=== PATIENT | female | born 1955 | race Caucasian/White ===

== ENCOUNTER → 2020-05-27 08:44 | Outpatient (BNVA) | payer OTHER, SELFPAY | PROVIDERS: Family Provider Nurse Practitioner Family; Visit Provider Nurse Practitioner Family | DX: Z20.828 Contact with and (suspected) exposure to other viral communicable diseases (principal) | CPT/HCPCS: 87635 ==

== ENCOUNTER 2021-09-28 08:47 | Outpatient (CLI) | payer MEDICARE, SELFPAY ==
[2021-09-28 08:57] VITALS: BMI 29.2
--- NOTE | 2021-09-28 09:15 | NMCV_ITS ---
NM davey perf SPECT r/s* [id number] Deandra Holloway Age: 66 Gender: F : 1955 Exam Date: 09/28/2021 09:15 Ordering Phys: Liya Fuller MD Technologist: JESSY Shannon Exam Location: [facility] Indications: CHEST PAIN STRESS TEST Please see separate stress test report in [facility] for full findings IMAGE PROTOCOL Rest/Stress 1 Lexiscan Day Radiopharmaceutical Dose (mCi) Administration Site Administered by Rest: Tc-99m 10.8 IV JESSY Espinal Sestamibi Stress:Tc-99m 32.7 IV JESSY Shannon Sestamiandrae Rest: 28-Sep-2021 60 Discovery 630 Stress: 28-Sep-2021 30 Discovery 630 0.4mg Lexiscan. Images obtained in supine and prone position. SPECT RESULTS Technical Quality: Excellent Raw Data Analysis: Normal Image Corrections: No attenuation or motion correction applied Summed Stress Score: 1 Summed Rest Score: 0 Summed Difference Score: 1 PERFUSION FINDINGS There is a small in size, reversible perfusion defect in the apical lateral wall. This is consistent with small sized area of ischemia in the left circumflex artery territory FUNCTIONAL RESULTS (calculated via Gated SPECT) Stress Image LV EF (%): 78 Stress EDV (mL):89 TID: 1.21 Stress ESV (mL):20 FUNCTIONAL FINDINGS: There is normal left ventricular systolic function. TID ratio is elevated IMPRESSIONS 1. Abnormal myocardial perfusion imaging with small sized area of ischemia noted in the left circumflex artery territory 2. LV systolic function is normal 3. Elevated TID ratio seen Endy Rea MD (Electronically Signed) Final Date: 03 Oct 2021 08:43 S
--- NOTE | 2021-09-28 09:15 | ECG_ITS ---
[facility] Test Date: 2021-09-28 Pat Name: Deandra Holloway Department: Room: Gender: Female Environmental Compliance Manager: Amee Zhangn : 1955 Requested By: Liya Pennington Order Number: [id number] Octaviano MD: Endy Rea M.D. Interpretive Statements NAME OF STUDY: LEXISCAN SESTAMIBI STRESS TEST INDICATION: [Chest Pain, ] Procedure: At the baseline, the blood pressure was 121/60 mmHg with a heart rate of 60 bpm. The electrocardiogram showed normal sinus rhythm, normal axis with normal ST and T's. The Lexiscan was infused over a period of 20 seconds. A total of 0.4 mg of Lexiscan was infused. The stress phase was continued for a total of 5 minutes. Heart rate was at the end of stress phase was 69 bpm and a blood pressure of 100/54 mmHg. The EKG at the peak infusion revealed since normal sinus rhythm with no significant ST-T wave changes. Sestamibi was injected 20 seconds after the Lexiscan infusion. Blood pressure at the end of recovery phase was 108/57 mmHg with a heart rate of 68 bpm. Conclusion: 1. Normal EKG response to Lexiscan infusion 2. No Lexiscan induced chest pain or cardiac arrhythmia. 3. Normal blood pressure and heart rate response. 4. Sestamibi/sestamibi perfusion scan pending; see separate report. Electronically Signed On 10-27-2021 15:11:26 CDT by Endy Rea M.D. [id number]
[2021-09-28] MEDS: regadenoson 0.4 Mg/5 ml Syringe IVP (10:41)
[2021-09-28 10:53] VITALS: BP 108/57; PULSE 68
== END 2021-09-28 08:48 | disposition home or self-care (01) ==
PROVIDERS: PCP Internal Medicine; Visit Provider Internal Medicine
DX: R07.9 Chest pain, unspecified (principal)
CPT/HCPCS: 78452; 93017; A9500; J2785

== ENCOUNTER → 2021-10-31 12:03 | Outpatient (BNVA) | payer MEDICARE, SELFPAY | PROVIDERS: PCP Internal Medicine; Visit Provider Internal Medicine | DX: R94.39 Abnormal result of other cardiovascular function study (principal); R07.9 Chest pain, unspecified; I10 Essential (primary) hypertension | CPT/HCPCS: 93005; 99203; 99204 ==

== ENCOUNTER 2021-11-09 08:41 | Outpatient (CLI) | payer MEDICARE, SELFPAY ==
--- NOTE | 2021-11-09 08:50 | MM_ITS ---
WS: [id number] SCREENING DIGITAL BREAST TOMOSYNTHESIS MAMMOGRAM WITH CAD HISTORY: SCREEN COMPARISON: 01/04/2016 Bilateral CC and MLO with tomosynthesis views submitted. Synthetic mammography reviewed. Computer aid ed detection analyzed. Breast composition: There are scattered areas of fibroglandular density. No suspicious masses, microc alcifications or architectural distortion. MM/[place] [id number] IMPRESSION: BI-RADS: 1-Negative FOLLOW UP: 1 Year Follow-up
== END 2021-11-09 08:42 | disposition home or self-care (01) ==
LOC: RAD 08:41
PROVIDERS: PCP Internal Medicine; Visit Provider Internal Medicine
DX: Z12.31 Encounter for screening mammogram for malignant neoplasm of breast (principal)
CPT/HCPCS: 77063; 77067

== ENCOUNTER 2023-01-19 07:28 | Outpatient (CLI) | payer MEDICARE, SELFPAY ==
--- NOTE | 2023-01-19 07:35 | MM_ITS ---
WS: [id number] BILATERAL SCREENING DIGITAL TOMOSYNTHESIS MAMMOGRAM WITH CAD HISTORY: SCREENING COMPARISON: 11/09/2021, 01/04/2016 Bilateral CC and MLO views with tomosynthesis and synthetic mammography submitted. Computer aided det ection analyzed. Breast composition: There are scattered areas of fibroglandular density. No suspicious masses, microc alcifications or architectural distortion. Long-term stability of a small asymmetry measuring 3 mm se en best on the RIGHT MLO projection along the posterior inferior breast. IMPRESSION: MM/[place] [id number] BI-RADS: 2-Benign FOLLOW UP: 1 Year Follow-up
--- NOTE | 2023-01-19 08:04 | USCV_ITS ---
Jewel Deandra Age: 67 Gender: F : 1955 Exam Date: 01/19/2023 08:33 Ordering Phys: Liya Fuller MD Technologist: MITCHEL [place] [facility] [place]ication: CAD Risk Factors: Previous Vascular Surgery: Right Brachial BP: / Left Brachial BP: / Right Left Velocity (cm/s) Spectral Plaque Velocity (cm/s) Spectral Plaque Syst/Diast Broadening Syst/Diast Broadening 70.70/ 17.90 Prox CCA 70.60 / 19.80 59.60/ 15.60 Mid CCA 80.10 / 21.80 79.20/ 20.20 Distal CCA 91.50 / 30.20 73.00/ 19.40 Prox ICA 78.30 / 24.30 51.10/ 18.20 Mid ICA 92.60 / 30.90 65.10/ 21.50 Distal ICA 89.30 / 29.80 82.30 ECA 93.70 0.92 ICA/CCA 1.01 Antegrade Vertebral Antegrade 34.70/ 6.90 cm/s 95.90/ 23.20 cm/s Tri Subclavian Tri 97.00 161.7 0 CONCLUSIONS Right ICA stenosis <50%. Mild atheromatous plaque right carotid bulb/ICA. Left ICA stenosis <50%. Mild atheromatous plaque left carotid bulb/ICA. Intimal thickening in the common carotid arteries and internal carotid arteries bilaterally. Normal antegrade Doppler flow noted in the right vertebral artery. Normal antegrade Doppler flow noted in the left vertebral artery. Neil Dominguez MD (Electronically Signed) Final Date: 19 January 2023 16:05 S
== END 2023-01-19 07:29 | disposition home or self-care (01) ==
PROVIDERS: PCP Internal Medicine; Visit Provider Internal Medicine
DX: Z12.31 Encounter for screening mammogram for malignant neoplasm of breast (principal); I65.23 Occlusion and stenosis of bilateral carotid arteries
CPT/HCPCS: 77063; 77067; 93880

== ENCOUNTER 2024-07-09 12:14 | Outpatient (CLI) | payer MEDICARE, SELFPAY ==
--- NOTE | 2024-07-09 12:26 | XR_ITS ---
WS: [id number] XR ribs RT 2V* [id number] REASON FOR EXAM: RT RIB PAIN FINDINGS: No acute rib fracture identified. No underlying pleural abnormality. No pneumothorax or subcutaneous emphysema. XR/XR ribs RT 2V* [id number] IMPRESSION: No acute abnormality.
== END 2024-07-09 12:15 | disposition home or self-care (01) ==
LOC: RAD 12:16
PROVIDERS: PCP Internal Medicine; Visit Provider Internal Medicine
DX: R07.81 Pleurodynia (principal)
CPT/HCPCS: 71100

== ENCOUNTER 2024-07-28 11:07 | Outpatient (CLI) | payer MEDICARE, SELFPAY ==
--- NOTE | 2024-07-28 11:15 | MM_ITS ---
WS: [id number] BILATERAL SCREENING DIGITAL TOMOSYNTHESIS MAMMOGRAM WITH CAD HISTORY: SCREENING COMPARISON: 01/19/2023, 11/09/2021 Bilateral CC and MLO views with tomosynthesis and synthetic mammography submitted. Computer aided detection analyzed. Breast composition: The breasts are almost entirely fatty. No suspicious masses, microcalcifications or architectural distortion. LEFT breast arterial calcifications. MM/MM scr BI tomosynthesis [id number] IMPRESSION: BI-RADS: 2 - Benign. FOLLOW UP: 1 Year Follow-up
== END 2024-07-28 11:08 | disposition home or self-care (01) ==
LOC: RAD 11:11
PROVIDERS: PCP Internal Medicine; Visit Provider Internal Medicine
DX: Z12.31 Encounter for screening mammogram for malignant neoplasm of breast (principal); R92.313 Mammographic fatty tissue density, bilateral breasts; R92.1 Mammographic calcification found on diagnostic imaging of breast
CPT/HCPCS: 77063; 77067